=== PATIENT | male | born 1930 | race Caucasian/White ===

== ENCOUNTER 2018-01-07 01:34 | Inpatient (IN) | payer MEDICARE, OTHER ==
[~2018-01-07] VITALS: Ht 182.9 cm; Wt 82.0 kg
[~2018-01-07 01:34] MED LIST: ALLO100T PO; COU5T PO; CYAN100087 PO; FLO0.4C PO; LISI-600 PO; METO50TA7 PO; NITR0.4T51 SL; ROSU20TA PO
[2018-01-07] MEDS ORDERED: ondansetron/PF 4mg/2ml inj IV ONE (02:40)
[2018-01-07] MEDS ORDERED: pantoprazole 40 MG vial IV ONE (02:40)
[2018-01-07] MEDS ORDERED: morphine 2 MG/ML inj. syringe IV PRN ×3 (02:40→07:55)
[2018-01-07] MEDS ORDERED: normal saline 1000ML IV soln IVB ONE (02:40)
[2018-01-07 03:09] LABS: BASOPHILS % (AUTO) 0 % (0-1); EOSINOPHILS # (AUTO) 0.1 X10'3 (0-0.9); EOSINOPHILS % (AUTO) 1.1 % (0-6); HEMATOCRIT 48.1 % (42.0-52.0); HEMOGLOBIN 15.9 g/dl (14.0-17.9); LYMPHOCYTES # (AUTO) 0.2 X10'3 (1.1-4.8); LYMPHOCYTES % (AUTO) 1.9 % (21-51); MEAN CORPUSCULAR HEMOGLOBIN 31.4 PG (27.0-31.0); MEAN CORPUSCULAR VOLUME 95.4 FL (78-98); MEAN PLATELET VOLUME 7.4 FL (7.4-10.4); MONOCYTES # (AUTO) 0.7 X10'3 (0-0.9); MONOCYTES % (AUTO) 6.5 % (2-12); NEUTROPHILS # (AUTO) 9.5 X10'3 (1.8-7.7); NEUTROPHILS % (AUTO) 90.5 % (42-75); PLATELET COUNT 164 X10'3 (140-440); RED BLOOD COUNT 5.04 X10'6 (4.70-6.10); RED CELL DISTRIBUTION WIDTH 14.5 % (11.5-14.5); WHITE BLOOD COUNT 10.5 X10'3 (4.5-11.0)
[2018-01-07 03:23] LABS: ALANINE AMINOTRANSFERASE 21 U/L (12-78); ALBUMIN/GLOBULIN RATIO 0.8 (1.1-1.5); ALKALINE PHOSPHATASE 59 IU/L (46-116); ANION GAP 12 (8-16); ASPARTATE AMINO TRANSFERASE 18 U/L (10-37); BILIRUBIN,TOTAL 0.6 MG/DL (0.1-1.0); BLOOD UREA NITROGEN 31 MG/DL (7-18); BUN/CREATININE RATIO 19.7 (5.4-32.0); CALCIUM 8.9 MG/DL (8.5-10.1); CHLORIDE 111 MMOL/L (99-107); CREATININE 1.57 MG/DL (0.60-1.10); GLUCOSE 143 MG/DL (70-104); LIPASE 95 U/L (73-393); POTASSIUM 4.1 MMOL/L (3.5-5.1); SODIUM 145 MMOL/L (135-145); TOTAL CARBON DIOXIDE 21.9 MMOL/L (24-32); TOTAL PROTEIN 6.6 G/DL (6.4-8.2); eGFR 42 ML/MIN
[2018-01-07 03:25] LABS: INR 1.1 INR; PROTHROMBIN TIME 10.8 SECONDS (9.0-12.0)
[2018-01-07 04:33] LABS: CLARITY,URINE SLIGHTLY CLOUDY (Clear); COLOR,URINE YELLOW (Yellow); GLUCOSE, URINE NEGATIVE (Neg); KETONES,URINE NEGATIVE (Neg); LEUKOCYTE ESTERASE ,URINE NEGATIVE (Neg); NITRITES, URINE NEGATIVE (Neg); OCCULT BLOOD,URINE MODERATE (Neg); PROTEIN,URINE 30 mg/dl (Neg); UROBILINOGEN,URINE 0.2 E.U/dL (0.2-1.0)
[2018-01-07 04:44] LABS: UA COLLECTION TYPE CLN CATCH MIDSTREAM
[2018-01-07 04:45] LABS: BACTERIA,URINE FEW /HPF (Neg); RBC,URINE 20-50 /HPF (0-2); SQUAMOUS EPITHELIAL CELL,UR FEW /LPF (FEW); WBC,URINE NONE SEEN /HPF (0-4)
[2018-01-07] MEDS ORDERED: ondansetron/PF 4mg/2ml inj IV PRN (07:55)
[2018-01-07] MEDS ORDERED: potassium Cl 20 mEq SR tablet PO PRN ×2 (07:55)
[2018-01-07] MEDS ORDERED: magnesium 1gm/100ml D5W IVPB 100 ML IV PRN (07:55)
[2018-01-07] MEDS ORDERED: HYDROcodone/acetaminophen 5mg/325mg tablet PO PRN (07:55)
[2018-01-07] MEDS ORDERED: HYDROcodone/acetaminophen 10/325mg tab PO PRN (07:55)
[2018-01-07] MEDS ORDERED: magnesium 4gm in 100ml NS 100 ML IV PRN (07:55)
[2018-01-07] MEDS ORDERED: acetaminophen 325mg tablet PO PRN ×2 (07:55)
[2018-01-07] MEDS ORDERED: magnesium hydroxide 30ml (MOM) UD suspension PO PRN (07:55)
[2018-01-07] MEDS ORDERED: mag hydrox/Alum hydrox/simeth 30ml oral suspension PO PRN (07:55)
[2018-01-07] MEDS ORDERED: potassium Cl 40MEQ/NS 500ml 500 ML IV PRN ×2 (07:55)
[2018-01-07] MEDS ORDERED: magnesium Cl slow-release 64mg tablet PO PRN (07:55)
[2018-01-07] MEDS: normal saline 1000ml 1,000 ML IV SCH ×2 (09:12→17:42)
[2018-01-07] MEDS: K and/or MAG REPLACEMENT MC SCH (10:45)
[2018-01-07 11:07] VITALS: BP 164/101
[2018-01-07] MEDS ORDERED: hydrALAZINE 20mg/ml inj. IV PRN ×2 (11:15→14:20)
[2018-01-07] MEDS ORDERED: nitroGLYCERIN 0.4mg SUBLingual tab SL PRN (12:20)
[2018-01-07] MEDS: enoxaparin 80mg/0.8ml syringe SUBCUT SCH (13:17)
[2018-01-07] MEDS ORDERED: hydrALAZINE 20mg/ml inj. IV ONE (14:15)
[2018-01-07 17:20] VITALS: BP 175/108
[2018-01-07] MEDS: labetalol 20mg/4ml (5mg/ml) syringe IV PRN (17:36)
[2018-01-07 17:48] VITALS: BP 139/92
[2018-01-07 18:00] VITALS: BP 138/82
[2018-01-07 22:00] VITALS: BP 158/97
[2018-01-08] VITALS (7 sets, daily range): BP systolic 140–189; BP diastolic 91–118
[2018-01-08] MEDS: normal saline 1000ml 1,000 ML IV SCH (04:01)
[2018-01-08 05:15] LABS: BASOPHILS % (AUTO) 0.2 % (0-1); EOSINOPHILS # (AUTO) 0.1 X10'3 (0-0.9); EOSINOPHILS % (AUTO) 1.8 % (0-6); HEMATOCRIT 44.9 % (42.0-52.0); HEMOGLOBIN 14.5 g/dl (14.0-17.9); LYMPHOCYTES # (AUTO) 0.6 X10'3 (1.1-4.8); LYMPHOCYTES % (AUTO) 9.4 % (21-51); MEAN CORPUSCULAR HGB CONC 32.2 % (33.0-36.5); MEAN CORPUSCULAR VOLUME 96.2 FL (78-98); MEAN PLATELET VOLUME 7.4 FL (7.4-10.4); MONOCYTES # (AUTO) 0.5 X10'3 (0-0.9); MONOCYTES % (AUTO) 7.5 % (2-12); NEUTROPHILS % (AUTO) 81.1 % (42-75); PLATELET COUNT 136 X10'3 (140-440); RED BLOOD COUNT 4.67 X10'6 (4.70-6.10); RED CELL DISTRIBUTION WIDTH 14.9 % (11.5-14.5); WHITE BLOOD COUNT 6.2 X10'3 (4.5-11.0)
[2018-01-08 05:37] LABS: ALBUMIN 2.5 G/DL (3.4-5.0); ANION GAP 12 (8-16); BLOOD UREA NITROGEN 16 MG/DL (7-18); CALCIUM 7.8 MG/DL (8.5-10.1); CHLORIDE 113 MMOL/L (99-107); CREATININE 1.07 MG/DL (0.60-1.10); GLUCOSE 96 MG/DL (70-104); MAGNESIUM 1.7 MG/DL (1.5-2.4); POTASSIUM 3.7 MMOL/L (3.5-5.1); SODIUM 147 MMOL/L (135-145); TOTAL CARBON DIOXIDE 22.5 MMOL/L (24-32); eGFR 65 ML/MIN
[2018-01-08] MEDS: atorvastatin 20mg tablet PO SCH (08:00)
[2018-01-08] MEDS: metoprolol succinate 25mg (24-HOUR) SR. Tablet PO SCH (08:00)
[2018-01-08] MEDS: cyanocobalamin 500mcg tablet PO SCH (08:00)
[2018-01-08] MEDS: tamsulosin 0.4mg capsule PO SCH (08:00)
[2018-01-08] MEDS: allopurinol 300 MG tablet PO SCH (08:00)
[2018-01-08] MEDS: K and/or MAG REPLACEMENT MC SCH (08:00)
[2018-01-08] MEDS: pantoprazole 40 MG vial IV SCH (08:35)
[2018-01-08] MEDS: enoxaparin 80mg/0.8ml syringe SUBCUT SCH ×2 (08:36→21:50)
[2018-01-08] MEDS: labetalol 20mg/4ml (5mg/ml) syringe IV PRN ×2 (09:34→17:41)
[2018-01-09] VITALS (7 sets, daily range): BP systolic 96–188; BP diastolic 66–119
[2018-01-09 05:43] LABS: BASOPHILS % (AUTO) 0.3 % (0-1); EOSINOPHILS # (AUTO) 0.1 X10'3 (0-0.9); EOSINOPHILS % (AUTO) 0.6 % (0-6); HEMATOCRIT 45.9 % (42.0-52.0); HEMOGLOBIN 15.1 g/dl (14.0-17.9); LYMPHOCYTES # (AUTO) 0.7 X10'3 (1.1-4.8); LYMPHOCYTES % (AUTO) 7.5 % (21-51); MEAN CORPUSCULAR HEMOGLOBIN 31.3 PG (27.0-31.0); MEAN CORPUSCULAR HGB CONC 32.9 % (33.0-36.5); MEAN PLATELET VOLUME 7.8 FL (7.4-10.4); MONOCYTES # (AUTO) 0.5 X10'3 (0-0.9); MONOCYTES % (AUTO) 5.9 % (2-12); NEUTROPHILS # (AUTO) 7.5 X10'3 (1.8-7.7); NEUTROPHILS % (AUTO) 85.7 % (42-75); PLATELET COUNT 152 X10'3 (140-440); RED BLOOD COUNT 4.83 X10'6 (4.70-6.10); RED CELL DISTRIBUTION WIDTH 14.6 % (11.5-14.5); WHITE BLOOD COUNT 8.7 X10'3 (4.5-11.0)
[2018-01-09 05:51] LABS: ALBUMIN 2.7 G/DL (3.4-5.0); ANION GAP 10 (8-16); BLOOD UREA NITROGEN 13 MG/DL (7-18); BUN/CREATININE RATIO 11.9 (5.4-32.0); CALCIUM 8.6 MG/DL (8.5-10.1); CHLORIDE 111 MMOL/L (99-107); CREATININE 1.09 MG/DL (0.60-1.10); GLUCOSE 94 MG/DL (70-104); MAGNESIUM 1.9 MG/DL (1.5-2.4); POTASSIUM 3.6 MMOL/L (3.5-5.1); SODIUM 144 MMOL/L (135-145); TOTAL CARBON DIOXIDE 23.2 MMOL/L (24-32); eGFR 64 ML/MIN
[2018-01-09] MEDS: K and/or MAG REPLACEMENT MC SCH (08:00)
[2018-01-09] MEDS: tamsulosin 0.4mg capsule PO SCH (09:43)
[2018-01-09] MEDS: allopurinol 300 MG tablet PO SCH (09:43)
[2018-01-09] MEDS: atorvastatin 20mg tablet PO SCH (09:43)
[2018-01-09] MEDS: metoprolol succinate 25mg (24-HOUR) SR. Tablet PO SCH (09:44)
[2018-01-09] MEDS: pantoprazole 40 MG vial IV SCH (09:44)
[2018-01-09] MEDS: cyanocobalamin 500mcg tablet PO SCH (09:44)
[2018-01-09] MEDS: enoxaparin 80mg/0.8ml syringe SUBCUT SCH (09:46)
[2018-01-09] MEDS: labetalol 20mg/4ml (5mg/ml) syringe IV PRN (13:10)
[2018-01-10 03:00] VITALS: BP 152/104
[2018-01-10 06:00] VITALS: BP 132/71
[2018-01-10 06:05] LABS: BASOPHILS % (AUTO) 0.2 % (0-1); EOSINOPHILS # (AUTO) 0.1 X10'3 (0-0.9); EOSINOPHILS % (AUTO) 1.1 % (0-6); HEMATOCRIT 48.8 % (42.0-52.0); HEMOGLOBIN 15.7 g/dl (14.0-17.9); LYMPHOCYTES # (AUTO) 0.5 X10'3 (1.1-4.8); LYMPHOCYTES % (AUTO) 5.9 % (21-51); MEAN CORPUSCULAR HEMOGLOBIN 30.8 PG (27.0-31.0); MEAN CORPUSCULAR HGB CONC 32.2 % (33.0-36.5); MEAN CORPUSCULAR VOLUME 95.9 FL (78-98); MEAN PLATELET VOLUME 7.7 FL (7.4-10.4); MONOCYTES # (AUTO) 0.6 X10'3 (0-0.9); MONOCYTES % (AUTO) 6.6 % (2-12); NEUTROPHILS % (AUTO) 86.2 % (42-75); PLATELET COUNT 162 X10'3 (140-440); RED BLOOD COUNT 5.08 X10'6 (4.70-6.10); RED CELL DISTRIBUTION WIDTH 14.3 % (11.5-14.5); WHITE BLOOD COUNT 9.3 X10'3 (4.5-11.0)
[2018-01-10 06:51] LABS: ALBUMIN 2.9 G/DL (3.4-5.0); ANION GAP 11 (8-16); BLOOD UREA NITROGEN 17 MG/DL (7-18); BUN/CREATININE RATIO 13.3 (5.4-32.0); CALCIUM 8.7 MG/DL (8.5-10.1); CHLORIDE 108 MMOL/L (99-107); CREATININE 1.28 MG/DL (0.60-1.10); GLUCOSE 113 MG/DL (70-104); POTASSIUM 3.6 MMOL/L (3.5-5.1); SODIUM 144 MMOL/L (135-145); TOTAL CARBON DIOXIDE 24.7 MMOL/L (24-32); eGFR 53 ML/MIN
[2018-01-10] MEDS: K and/or MAG REPLACEMENT MC SCH (08:00)
[2018-01-10] MEDS: atorvastatin 20mg tablet PO SCH (08:58)
[2018-01-10] MEDS: pantoprazole 40 MG vial IV SCH (08:58)
[2018-01-10] MEDS: cyanocobalamin 500mcg tablet PO SCH (08:58)
[2018-01-10] MEDS: allopurinol 300 MG tablet PO SCH (08:58)
[2018-01-10] MEDS: tamsulosin 0.4mg capsule PO SCH (08:58)
[2018-01-10] MEDS: metoprolol succinate 25mg (24-HOUR) SR. Tablet PO SCH (08:58)
[2018-01-10 11:00] VITALS: BP 130/90
[2018-01-10 15:00] VITALS: BP 98/75
[2018-01-10 19:00] VITALS: BP 124/77
[2018-01-10 23:00] VITALS: BP 138/86
[2018-01-11 03:00] VITALS: BP 150/93
[2018-01-11 05:48] LABS: BASOPHILS % (AUTO) 0.1 % (0-1); EOSINOPHILS # (AUTO) 0.2 X10'3 (0-0.9); HEMATOCRIT 42.8 % (42.0-52.0); HEMOGLOBIN 14.3 g/dl (14.0-17.9); LYMPHOCYTES # (AUTO) 0.7 X10'3 (1.1-4.8); LYMPHOCYTES % (AUTO) 8.4 % (21-51); MEAN CORPUSCULAR HEMOGLOBIN 31.6 PG (27.0-31.0); MEAN CORPUSCULAR HGB CONC 33.3 % (33.0-36.5); MEAN CORPUSCULAR VOLUME 94.8 FL (78-98); MONOCYTES # (AUTO) 0.7 X10'3 (0-0.9); NEUTROPHILS # (AUTO) 6.7 X10'3 (1.8-7.7); NEUTROPHILS % (AUTO) 81.5 % (42-75); PLATELET COUNT 149 X10'3 (140-440); RED BLOOD COUNT 4.52 X10'6 (4.70-6.10); RED CELL DISTRIBUTION WIDTH 14.4 % (11.5-14.5); WHITE BLOOD COUNT 8.3 X10'3 (4.5-11.0)
[2018-01-11 06:00] VITALS: BP 143/102
[2018-01-11 06:00] LABS: ALBUMIN 2.5 G/DL (3.4-5.0); ANION GAP 8 (8-16); BLOOD UREA NITROGEN 20 MG/DL (7-18); BUN/CREATININE RATIO 16.5 (5.4-32.0); CALCIUM 8.2 MG/DL (8.5-10.1); CHLORIDE 107 MMOL/L (99-107); CREATININE 1.21 MG/DL (0.60-1.10); GLUCOSE 94 MG/DL (70-104); MAGNESIUM 1.8 MG/DL (1.5-2.4); POTASSIUM 3.5 MMOL/L (3.5-5.1); SODIUM 140 MMOL/L (135-145); TOTAL CARBON DIOXIDE 24.7 MMOL/L (24-32); eGFR 56 ML/MIN
[2018-01-11] MEDS: K and/or MAG REPLACEMENT MC SCH (08:00)
[2018-01-11] MEDS: atorvastatin 20mg tablet PO SCH (08:07)
[2018-01-11] MEDS: cyanocobalamin 500mcg tablet PO SCH (08:07)
[2018-01-11] MEDS: metoprolol succinate 25mg (24-HOUR) SR. Tablet PO SCH (08:07)
[2018-01-11] MEDS: allopurinol 300 MG tablet PO SCH (08:07)
[2018-01-11] MEDS: pantoprazole 40mg Tablet.DR PO SCH (08:07)
[2018-01-11] MEDS: tamsulosin 0.4mg capsule PO SCH (08:07)
[2018-01-11 11:00] VITALS: BP 124/79
[2018-01-11 15:00] VITALS: BP 94/72
[2018-01-11 19:00] VITALS: BP 100/72
[2018-01-11 23:00] VITALS: BP 131/84
[2018-01-12 03:00] VITALS: BP 136/77
[2018-01-12 05:27] LABS: ALBUMIN 2.6 G/DL (3.4-5.0); ANION GAP 10 (8-16); BLOOD UREA NITROGEN 23 MG/DL (7-18); BUN/CREATININE RATIO 18.7 (5.4-32.0); CALCIUM 8.7 MG/DL (8.5-10.1); CHLORIDE 107 MMOL/L (99-107); CREATININE 1.23 MG/DL (0.60-1.10); GLUCOSE 104 MG/DL (70-104); MAGNESIUM 1.9 MG/DL (1.5-2.4); POTASSIUM 3.4 MMOL/L (3.5-5.1); SODIUM 140 MMOL/L (135-145); TOTAL CARBON DIOXIDE 23.1 MMOL/L (24-32); eGFR 55 ML/MIN
[2018-01-12 05:29] LABS: BASOPHILS % (AUTO) 0.2 % (0-1); EOSINOPHILS # (AUTO) 0.1 X10'3 (0-0.9); EOSINOPHILS % (AUTO) 1.3 % (0-6); HEMATOCRIT 46.1 % (42.0-52.0); HEMOGLOBIN 15.1 g/dl (14.0-17.9); LYMPHOCYTES # (AUTO) 0.7 X10'3 (1.1-4.8); LYMPHOCYTES % (AUTO) 6.6 % (21-51); MEAN CORPUSCULAR HEMOGLOBIN 31.5 PG (27.0-31.0); MEAN CORPUSCULAR HGB CONC 32.8 % (33.0-36.5); MEAN CORPUSCULAR VOLUME 95.9 FL (78-98); MEAN PLATELET VOLUME 7.7 FL (7.4-10.4); MONOCYTES # (AUTO) 0.7 X10'3 (0-0.9); MONOCYTES % (AUTO) 7.4 % (2-12); NEUTROPHILS # (AUTO) 8.4 X10'3 (1.8-7.7); NEUTROPHILS % (AUTO) 84.5 % (42-75); PLATELET COUNT 135 X10'3 (140-440); RED BLOOD COUNT 4.81 X10'6 (4.70-6.10); RED CELL DISTRIBUTION WIDTH 14.2 % (11.5-14.5)
[2018-01-12 07:00] VITALS: BP 153/87
[2018-01-12] MEDS: allopurinol 300 MG tablet PO SCH (07:46)
[2018-01-12] MEDS: pantoprazole 40mg Tablet.DR PO SCH (07:46)
[2018-01-12] MEDS: tamsulosin 0.4mg capsule PO SCH (07:48)
[2018-01-12] MEDS: metoprolol succinate 25mg (24-HOUR) SR. Tablet PO SCH (07:48)
[2018-01-12] MEDS: cyanocobalamin 500mcg tablet PO SCH (07:48)
[2018-01-12] MEDS: atorvastatin 20mg tablet PO SCH (07:49)
[2018-01-12] MEDS: K and/or MAG REPLACEMENT MC SCH (07:55)
[2018-01-12] MEDS ORDERED: magnesium Cl slow-release 64mg tablet PO PRN (09:50)
[2018-01-12] MEDS ORDERED: potassium Cl 20 mEq SR tablet PO PRN ×2 (09:50)
[2018-01-12] MEDS ORDERED: potassium Cl 40MEQ/NS 500ml 500 ML IV PRN ×2 (09:50)
[2018-01-12 11:00] VITALS: BP 150/85
== END 2018-01-12 15:15 | DRG 388 ==
LOC: ER 01:35 → ED HOLD 08:01 → SUR 3N 10:22 → PCU 3S 17:24
PROVIDERS: ADMIT Hospitalist; ATTEND Family Medicine
PROC: 0D9670Z Drainage of Stomach with Drainage Device, Via Natural or Artificial Opening (ICD-10-PCS; principal; 2018-01-07)
DX: K56.609 Unspecified intestinal obstruction, unspecified as to partial versus complete obstruction (principal); N17.0 Acute kidney failure with tubular necrosis; Z94.1 Heart transplant status; N40.1 Benign prostatic hyperplasia with lower urinary tract symptoms; E78.00 Pure hypercholesterolemia, unspecified; I10 Essential (primary) hypertension; R33.8 Other retention of urine; R31.9 Hematuria, unspecified; Z79.899 Other long term (current) drug therapy; Z79.01 Long term (current) use of anticoagulants
CPT/HCPCS: 36415; 71045; 74176; 80048; 80053; 81001; 83690; 83735; 84484; 85025; 85610; 87070; 93005; 96361; 96374; 96375; 97110; 97116; 97162; 97530; 99285; C9113; G0378; J0360; J1650; J2405; J3490; J7030

== ENCOUNTER 2018-05-21 00:23 | Emergency (ER) | payer MEDICARE, OTHER ==
[~2018-05-21] VITALS: Ht 182.9 cm; Wt 90.0 kg
[~2018-05-21 00:23] MED LIST changes: -COU5T PO; -LISI-600 PO; -ROSU20TA PO; +ROSU20TA2 PO
[2018-05-21 02:29] LABS: CLARITY,URINE CLEAR (Clear); COLOR,URINE STRAW (Yellow); GLUCOSE, URINE NEGATIVE (Neg); KETONES,URINE NEGATIVE (Neg); LEUKOCYTE ESTERASE ,URINE TRACE (Neg); NITRITES, URINE NEGATIVE (Neg); OCCULT BLOOD,URINE SMALL (Neg); PROTEIN,URINE NEGATIVE (Neg); UROBILINOGEN,URINE 0.2 E.U/dL (0.2-1.0)
[2018-05-21 02:36] LABS: UA COLLECTION TYPE FOLEY CATH
[2018-05-21 02:41] LABS: BACTERIA,URINE NONE SEEN /HPF (Neg); MUCUS STRANDS NONE SEEN /LPF (Neg); SQUAMOUS EPITHELIAL CELL,UR FEW /LPF (FEW)
[2018-05-21] MEDS ORDERED: CEPH500C5 PO (02:55)
[2018-05-21] MEDS ORDERED: cephalexin 250mg capsule PO ONE (02:55)
--- NOTE | 2018-05-21 03:34 | NUR ---
1500ML OUT SINCE NEW CATH PLACED
[2018-05-21 03:59] VITALS: BP 162/102
--- NOTE | 2018-05-21 05:54 | NUR ---
PT READY FOR D\C BUT NO ONE AVAILABLE TO OPEN DOOR TO FACILITY TO LET PATIENT IN. PT ALSO STATES HE DOESN'T THINK HE WILL BE ABLE TO WALK FROM THE DOOR TO HIS APARTMENT UNLESS SOMEONE CAN BRING HIS WHEELCHAIR OUT FROM HIS ROOM. WILL CONTACT THE FACILITY AT [facility] TO SEE IF\WHEN SOMEONE CAN HELP.
--- NOTE | 2018-05-21 06:03 | NUR ---
ATTEMPTED TO CONTACT [facility]. NO ONE ANSWERED.
== END 2018-05-21 07:24 | disposition home or self-care (01) ==
LOC: ER 00:24
DX: T83.038A Leakage of other urinary catheter, initial encounter (principal); N39.0 Urinary tract infection, site not specified; I10 Essential (primary) hypertension; E78.00 Pure hypercholesterolemia, unspecified
CPT/HCPCS: 51702; 81001; 87088; 99284